=== PATIENT | male | born 1935 | race Caucasian/White ===

== ENCOUNTER → 2023-06-02 13:43 | Outpatient (CLI) | payer MEDICARE, SELFPAY ==
--- NOTE | 2023-06-02 | DI.RAD_ITS ---
Exam(s) XR HAND RT COMPLETE EXAM: XR HAND RT COMPLETE CLINICAL HISTORY: THUMB PAIN, RIGHT. TECHNIQUE: 2D digital imaging was performed. Three views. COMPARISON: No exams were available for comparison FINDINGS: BONES: No acute fracture is present. No bony destructive lesion is seen. JOINTS: No dislocation present. 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 Mild dege nerative changes elsewhere in the carpal region. Degenerative changes also present in the interphala ngeal joints of the fingers. SOFT TISSUE: Normal. IMPRESSION: Degenerative changes. No acute abnormality. DATA REPOSITORY: RADIATION DOSE DELIVERED:
--- NOTE | 2023-06-02 14:08 | DI.RAD_ITS ---
Exam(s) XR WRIST RT COMPL NAVICULAR EXAM: XR WRIST RT COMPL NAVICULAR CLINICAL HISTORY: WRIST PAIN RIGHT. TECHNIQUE: 2D digital imaging was performed. Three views. COMPARISON: No exams were available for comparison FINDINGS: BONES: No acute fracture is present. No bony destructive lesion is seen. JOINTS: Severe degenerative changes 1st carpal metacarpal joint. Degenerative changes to lesser exte nt elsewhere. SOFT TISSUE: Normal. IMPRESSION: Degenerative changes. No acute abnormality. DATA REPOSITORY: RADIATION DOSE DELIVERED:
--- NOTE | 2023-06-02 14:28 | DI.VRAD_ITS ---
PROCEDURE INFORMATION: Exam: XR Right Wrist Exam date and time: 06/02/2023 1:59 PM Age: 87 years old Clinical indication: Other: Wrist pain TECHNIQUE: Imaging protocol: Radiologic exam of the right wrist. Views: 3 or more views. COMPARISON: CR XR HAND RT COMPLETE 06/02/2023 1:58 PM FINDINGS: Bones/joints: There are degenerative changes of the first carpometacarpal and scaphotrapeziumtrapezoid joints. No fracture. No erosive change. Soft tissues: Normal. IMPRESSION: Advanced arthropathy base of the thumb. Dictated and Authenticated by: Talib Hou MD. Ordering:JEROME Walters MD
--- NOTE | 2023-06-02 14:28 | DI.VRAD_ITS ---
PROCEDURE INFORMATION: Exam: XR Right Hand Exam date and time: 06/02/2023 1:58 PM Age: 87 years old Clinical indication: Other: Right thumb pain TECHNIQUE: Imaging protocol: Radiologic exam of the right hand. Views: 3 or more views. COMPARISON: No relevant prior studies available. FINDINGS: Bones/joints: There are degenerative changes of the first carpometacarpal and scaphotrapeziumtrapezoid joints. Degenerative narrowing of PIP and DIP joints with periarticular osteophytes. No erosive change. No fractures. Soft tissues: Normal. IMPRESSION: Polyarticular degenerative osteoarthritis change. Dictated and Authenticated by: Talib Hou MD. Ordering:JEROME Walters MD
== END ==
PROVIDERS: Visit Provider Physician Assistant Medical
DX: M18.11 Unilateral primary osteoarthritis of first carpometacarpal joint, right hand
CPT/HCPCS: 73110; 73130